=== PATIENT | female | born 1950 | race Caucasian/White ===

== ENCOUNTER 2018-08-10 08:37 | Observation (INO) | payer OTHER ==
--- NOTE | 2018-08-10 08:59 | PDOC ---
History of Present Illness - General Chief Complaint: Chest Pain Stated Complaint: CHEST PAIN - History of Present Illness Initial Comments: The pt is a 68F w/ a history of HTN and RA who presents for evaluation of several months of worsening exertional chest pain and shortness of breath. The pt states that her chest pain is left-sided, pressure, that does not radiate, is worse with walking (and especially stairs), and better with rest. She was seen by her PCP who recommended she see a Plate Painter but she has not made it to one yet. She also reports dyspnea on exertion with occasional lightheadedness with stairs. Currently she reports mild chest pain but no shortness of breath. She denies recent illness, fevers/chills, ISLAS, vision changes, abdominal pain, N/ V/C/D, dysuria, hematuria, blood in her stool, or changes in sensation 08/10/18 09:38 Past History - Past Medical History Allergies/Adverse Reactions: Allergies Allergy/AdvReac Type Severity Reaction Status Date / Time No Known Allergies Allergy Verified 08/10/18 08:43 Home Medications: Ambulatory Orders Hydrochlorothiazide [Hctz -] 12.5 mg PO DAILY 08/10/18 Methotrexate [Mexate -] 20 mg PO Q7D 08/10/18 - Suicide/Smoking/Psychosocial Hx Smoking History: Never smoked Hx Alcohol Use: No Drug/Substance Use Hx: No Review of Systems - Review of Systems Able to Perform ROS?: Yes Comments:: GENERAL/CONSTITUTIONAL: No fever or chills. No weakness HEAD, EYES, EARS, NOSE AND THROAT: No change in vision. No ear pain or discharge. No sore throat CARDIOVASCULAR: +exertional chest pain and HERRERA RESPIRATORY: Denies cough, hemoptysis GASTROINTESTINAL: No nausea, vomiting, diarrhea or constipation GENITOURINARY: No dysuria, frequency, or change in urination MUSCULOSKELETAL: No joint or muscle swelling or pain. No neck or back pain SKIN: No rash NEUROLOGIC: No headache, vertigo, or change in strength/sensation ENDOCRINE: No increased thirst. No abnormal weight change HEMATOLOGIC/LYMPHATIC: No anemia, easy bleeding, or history of blood clots ALLERGIC/IMMUNOLOGIC: No hives or skin allergy 08/10/18 08:58 Is the patient limited Maori proficient: No *Physical Exam - Vital Signs Last Vital Signs Temp Pulse Resp BP Pulse Ox 98.2 F 61 17 143/62 97 08/10/18 08:43 08/10/18 08:43 08/10/18 08:43 08/10/18 08:43 08/10/18 08:43 - Physical Exam Comments: GENERAL: Awake, alert, and oriented to person/place/time, in no acute distress HEAD: No signs of trauma, normocephalic, atraumatic EYES: PERRLA, EOMI, sclera anicteric, conjunctiva clear ENT: Hearing grossly normal, nares patent, oropharynx clear without exudates. Moist mucosa LUNGS: No distress, speaks full sentences, clear to auscultation bilaterally HEART: Regular rate and rhythm, normal S1 and S2, no murmurs appreciated, peripheral pulses normal and equal bilaterally ABDOMEN: Soft, nontender, normoactive bowel sounds. No guarding, no rebound EXTREMITIES: Normal inspection, Normal range of motion, no edema. No clubbing or cyanosis NEUROLOGICAL: Cranial nerves II through XII grossly intact. Normal speech, normal gait, no focal sensorimotor deficits SKIN: Warm, Dry 08/10/18 08:58 ED Treatment Course - LABORATORY CBC & Chemistry Diagram: 08/10/18 09:30 08/10/18 09:30 Medical Decision Making - Medical Decision Making The pt is a 68F w/ a history of HTN and RA who presents for several months of exertional chest pain and HERRERA Ddx includes ACS, PNA, anemia, consider asthma/COPD but not likely, not likely orthostatic ED Course ASA 324mg PO once given CMP, CBC, Trop I ECG CXR 08/10/18 09:44 No leukocytosis No anemia 08/10/18 10:22 ECG sinus w/ HR 78, normal axis, no evidence of acute ischemia 08/10/18 10:31 Initial Trop I neg Lytes wnl LFTs mildly elevated but no history of liver disease, no abdominal pain, no history of EtOH use No CUONG 08/10/18 10:42 Plan for Tele obs for ACS Cardiology consulted, plan for serial trops and stress test 08/10/18 17:43 *DC/Admit/Observation/Transfer Diagnosis at time of Disposition: Dyspnea on exertion Chest pain Qualifiers: Chest pain type: unspecified Qualified Code(s): R07.9 - Chest pain, unspecified Hypertension Qualifiers: Hypertension type: unspecified Qualified Code(s): I10 - Essential (primary) hypertension - Discharge Dispostion Condition at time of disposition: Fair Decision to Admit order: Yes - Referrals - Patient Instructions - Post Discharge Activity
[2018-08-10] MEDS ORDERED: ASPIRIN 81 MG CHEWABLE TABLETS PO ONE (09:27)
[2018-08-10] MEDS ORDERED: ASPIRIN 81 MG CHEWABLE TABLETS ONE (09:28)
--- NOTE | 2018-08-10 09:31 | PDOC ---
Attending Attestation - Resident Resident Name: Brandyn Pryor - ED Attending Attestation I have performed the following: I have examined & evaluated the patient, The case was reviewed & discussed with the resident, I agree w/resident's findings & plan, Exceptions are as noted - HPI HPI: 08/10/18 10:33 Ms Gomez is a 68F w/ a history of HTN and RA who presents for evaluation of two months of worsening exertional chest pain and shortness of breath. The patient reports that she has noted symptoms in May and June She typically stops walking when she notes chest pain. She has noted worsening of her chest pain and shortness of breath at shorter distances In fact, pt recently went to [facility] and while in the subway she syncopized EMS called, she waited 30 minutes and no one came so she called a friend to pick her up She has been seen by her PMD who referred her for CXR (07/11 - negative) PMD recommended cardiology evaluation with Dr Delgado which she has not done yet The pt states that her chest pain is left-sided, pressure, that does not radiate , is worse with walking (and especially stairs), and better with rest. She notes symptoms after walking approximately 20 feet Symptoms are worse with stairs She also notes that at night when she has to go to the bathroom, when she stands , she notes palpitations Currently she reports no chest pain but no shortness of breath. No cough, no palpitations 08/10/18 10:47 - Physicial Exam PE: 08/10/18 09:30 GENERAL: The patient is in no acute distress. ENT: Ears normal, nares patent, oropharynx clear without exudates. Moist mucous membranes. NECK: Normal range of motion, supple LUNGS: Breath sounds equal, clear to auscultation bilaterally. No wheezes, and no crackles. HEART:Regular rate and rhythm, normal S1 and S2 without murmur, rub or gallop. ABDOMEN: Soft, nontender, normoactive bowel sounds. EXTREMITIES: Normal range of motion, no edema. NEUROLOGICAL: Cranial nerves II through XII grossly intact. Normal speech. No focal neurological deficits. SKIN: Warm, Dry, normal turgor, no rashes or lesions noted. 08/10/18 10:34 - Medical Decision Making 08/10/18 10:32 68 yo F h/o HTN presenting to the ER with a complaint of exertional chest pain and dyspnea which has progressively worsened Pt has not been assessed by cardiology EKG - Twelve-lead EKG was performed and reviewed by me. There is normal sinus rhythm with a normal rate of 78 bpm. The axis is normal. The intervals are normal. There are no ST or T wave abnormalities. Impression: Normal twelve-lead EKG 08/10/18 10:34 08/10/18 10:34 HEART score 5 Will plan to admit 08/10/18 10:53 Laboratory Tests 08/10/18 08/10/18 09:30 09:30 WBC 5.7 Hgb 13.0 Hct 38.6 Plt Count 179 Sodium 144 Potassium 4.6 Chloride 112 H Carbon Dioxide 26 BUN 19.2 H Creatinine 0.7 Random Glucose 104 AST 61 H ALT 75 H Troponin I < 0.02 CXR- Cardiomegaly, increased markings at the base Will admit Will contact Dr Delgado for cardiology consultation Pt given ASA 08/10/18 10:54 *DC/Admit/Observation/Transfer Diagnosis at time of Disposition: Dyspnea on exertion Chest pain Qualifiers: Chest pain type: unspecified Qualified Code(s): R07.9 - Chest pain, unspecified Hypertension Qualifiers: Hypertension type: unspecified Qualified Code(s): I10 - Essential (primary) hypertension - Discharge Dispostion Condition at time of disposition: Fair Decision to Admit order: Yes - Referrals Referrals: Maribell Morgan MD [Primary Care Provider] - - Patient Instructions - Post Discharge Activity Heart Score/ECG Review - History History: Highly suspicious - Electrocardiogram EKG: Normal - Age Age: >/= 65 - Risk Factors Risk Factors Heart Score: Yes Hx Hypertension Based on the list above the patient has:: 1-2 risk factors - Troponin Troponin: </= normal limit - Score Heart Score - Total: 5
[2018-08-10 10:01] LABS: BASO % 0.6 % (0-2.0); EOS % 0.7 % (0-4.5); HEMATOCRIT 38.6 % (32.4-45.2); LYMPH % 31.2 % (8-40); MCH 30.6 pg (25.7-33.7); MCHC 33.6 g/dl (32.0-36.0); MEAN CELL VOLUME 90.9 fl (80-96); MEAN PLT VOLUME 9.8 fl (7.5-11.1); NEUT % 60.5 % (42.8-82.8); RBC 4.24 M/mm3 (3.60-5.2); RDW 14.5 % (11.6-15.6); WHITE BLOOD COUNT 5.7 K/mm3 (4.0-10.0)
[2018-08-10 10:21] LABS: PLATELET COUNT 179 K/MM3 (134-434)
--- NOTE | 2018-08-10 10:29 | EKG ---
Test Reason : Blood Pressure : / mmHG Vent. Rate : 078 BPM Atrial Rate : 078 BPM P-R Int : 198 ms QRS Dur : 078 ms QT Int : 410 ms P-R-T Axes : 057 -05 026 degrees QTc Int : 467 ms NORMAL SINUS RHYTHM WITH SINUS ARRHYTHMIA NORMAL ECG NO PREVIOUS ECGS AVAILABLE Confirmed by MD MILTON, VIANEY ([id number]) on 08/10/2018 10:29:34 AM Referred By: Confirmed By:VIANEY ROSE MD
[2018-08-10 10:39] LABS: ALBUMIN 3.4 g/dl (3.4-5.0); ALK PHOS 75 U/L (45-117); ANION GAP 6 MMOL/L (8-16); BLOOD UREA NITROGEN 19.2 mg/dL (7-18); CALCIUM 8.3 mg/dL (8.5-10.1); CHLORIDE 112 mmol/L (98-107); CO2 26 mmol/L (21-32); CREATININE 0.7 mg/dL (0.55-1.3); GLUCOSE,RANDOM 104 mg/dL (74-106); POTASSIUM 4.6 mmol/L (3.5-5.1); SGOT/AST 61 U/L (15-37); SGPT/ALT 75 U/L (13-61); SODIUM 144 mmol/L (136-145)
--- NOTE | 2018-08-10 11:14 | HP ---
CHIEF COMPLAINT: PCP: HISTORY OF PRESENT ILLNESS: This is a 68 yo F with PMH of HTN and RA, who presents due to worsening exertional chest pain and shortness of breath x 2 mo. patient experiences chest pressure, cp, sob and palpitations with exertional, gradually worsening to the point where she cant climb a flight of stairs without the symptoms. symptoms never occur at rest, however 2 w ago she syncopized on the train while sitting at rest, preceded by darkening visions and dizziness, lasting a few seconds. brother had NE at 67 yo, father of NE and mother had CVA. patient denies prior cardiac workup but was seen at Dr Delgado office 2x before w/o any tests done. denies orthopnea, cough, LE edema. ER course was notable for: (1)ekg (2)asa (3)cxr Recent Travel:denies PAST MEDICAL HISTORY: as above PAST SURGICAL HISTORY:as above Social History: Smoking: denies Alcohol: denies Drugs: denies Family History: strong cardiac history as above Allergies No Known Allergies Allergy (Verified 08/10/18 08:43) HOME MEDICATIONS: REVIEW OF SYSTEMS CONSTITUTIONAL: Absent: fever, chills HEENT: Absent: rhinorrhea, nasal congestion, throat pain CARDIOVASCULAR: Absent: peripheral edema RESPIRATORY: Absent: cough, orthopnea, hemoptysis GASTROINTESTINAL: Absent: abdominal pain, abdominal distension, nausea, vomiting, diarrhea, constipation, melena, hematochezia GENITOURINARY: Absent: dysuria MUSCULOSKELETAL: Absent: myalgia, arthralgia SKIN: Absent: rash, itching, pallor HEMATOLOGIC/IMMUNOLOGIC: Absent: easy bleeding, easy bruising ENDOCRINE: Absent: unexplained weight gain, unexplained weight loss NEUROLOGIC: Absent: headache, focal weakness or paresthesias PSYCHIATRIC: Absent: anxiety, depression PHYSICAL EXAMINATION Vital Signs - 24 hr 08/10/18 08:43 Temperature 98.2 F Pulse Rate 61 Respiratory 17 Rate Blood Pressure 143/62 O2 Sat by Pulse 97 Oximetry (%) GENERAL: Awake, alert, and fully oriented, in no acute distress. HEAD: Normal with no signs of trauma. EYES: Pupils equal, round and reactive to light, extraocular movements intact, sclera anicteric, conjunctiva clear. No lid lag. EARS, NOSE, THROAT: Moist mucous membranes. NECK: supple no JVD LUNGS: Breath sounds equal, clear to auscultation bilaterally HEART: Regular rate and rhythm, normal S1 and S2 ABDOMEN: Soft, nontender, not distended, normoactive bowel sounds, no guarding, no rebound, no masses. MUSCULOSKELETAL: No CVA tenderness. LOWER EXTREMITIES: warm, well-perfused. No calf tenderness. No peripheral edema. NEUROLOGICAL: Cranial nerves II-XII grossly intact. Normal speech. PSYCHIATRIC: Cooperative. Good eye contact. Appropriate mood and affect. SKIN: Warm, dry Laboratory Results - last 24 hr 08/10/18 08/10/18 09:30 09:30 WBC 5.7 RBC 4.24 Hgb 13.0 Hct 38.6 MCV 90.9 MCH 30.6 MCHC 33.6 RDW 14.5 Plt Count 179 MPV 9.8 Absolute Neuts (auto) 3.4 Neutrophils % 60.5 Lymphocytes % 31.2 Monocytes % 7.0 Eosinophils % 0.7 Basophils % 0.6 Nucleated RBC % 0 Sodium 144 Potassium 4.6 Chloride 112 H Carbon Dioxide 26 Anion Gap 6 L BUN 19.2 H Creatinine 0.7 Est GFR (CKD-EPI)AfAm 102.46 Est GFR (CKD-EPI)NonAf 88.40 Random Glucose 104 Calcium 8.3 L Total Bilirubin 1.0 AST 61 H ALT 75 H Alkaline Phosphatase 75 Troponin I < 0.02 Total Protein 6.0 L Albumin 3.4 ASSESSMENT/PLAN: This is a 68 yo F with PMH of HTN and RA, who presents due to worsening exertional chest pain and shortness of breath x 2 mo. Chest pain consistent with stable angina mild transaminitis recent syncope HTN RA -multiple risk factors for CAD as well as very convincing symptoms -ekg unremarkabe, trop negative, bnp 1000 -cxr clear -tte mild relaxation impairment, normal ef, no significant valvular abnormality -f/u carotid dopplers, tfts, lipid panel, a1c -cardio consult appreciated. f/u nuclear stress test -f/u liver us, suspect fatty liver - tele monitoring Problem List - Problem (1) History of syncope Code(s): Z87.898 - PERSONAL HISTORY OF OTHER SPECIFIED CONDITIONS (2) Chest pain Code(s): R07.9 - CHEST PAIN, UNSPECIFIED Qualifiers: Chest pain type: unspecified Qualified Code(s): R07.9 - Chest pain, unspecified (3) Dyspnea on exertion Code(s): R06.09 - OTHER FORMS OF DYSPNEA (4) Hypertension Code(s): I10 - ESSENTIAL (PRIMARY) HYPERTENSION Qualifiers: Hypertension type: unspecified Qualified Code(s): I10 - Essential (primary ) hypertension (5) Rheumatoid arthritis Code(s): M06.9 - RHEUMATOID ARTHRITIS, UNSPECIFIED Visit type - Emergency Visit Emergency Visit: Yes ED Registration Date: 08/10/18 Care time: The patient presented to the Emergency Department on the above date and was hospitalized for further evaluation of their emergent condition. - New Patient This patient is new to me today: Yes Date on this admission: 08/10/18 - Critical Care Critical Care patient: No
[2018-08-10 12:04] LABS: N-TERMINAL BNP 1010.1 pg/ml (5-125)
--- NOTE | 2018-08-10 12:47 | CON.CARD ---
Consult Consult Specialty:: cardiology Reason for Consultation:: chest pain; syncope - History of Present Illness Chief Complaint: Pt A&o3 ; asymptomatic. History of Present Illness: Ms Gomez is a 68F w/ a history of HTN and RA with scoliosis, who presents for evaluation of two months of worsening exertional chest pain and shortness of breath. The patient reports that she has noted symptoms in May and June She typically stops walking when she notes chest pain. She has noted worsening of her chest pain and shortness of breath at shorter distances In fact, pt recently went to [facility] and while in the subway she syncopized EMS called, she waited 30 minutes and no one came so she called a friend to pick her up She has been seen by her PMD who referred her for CXR (07/11 - negative) PMD recommended cardiology evaluation with Dr Delgado which she has not done yet The pt states that her chest pain is left-sided, pressure, that does not radiate , is worse with walking (and especially stairs), and better with rest. She notes symptoms after walking approximately 20 feet Symptoms are worse with stairs She also notes that at night when she has to go to the bathroom, when she stands , she notes palpitations Currently she reports no chest pain but no shortness of breath. No cough, no palpitations - History Source History Provided By: Patient, Medical Record Limitations to Obtaining History: Poor Historian - Past Medical History COOK VEGETABLE: Yes: Syncope Cardio/Vascular: Yes: HTN Pulmonary: No: Asthma Renal/: No: Renal Inusuff Reproductive: Yes: Postmenopausal ...: No Heme/Onc: No: Anemia Psych: No: Addictions - Alcohol/Substance Use Hx Alcohol Use: No - Smoking History Smoking history: Never smoked Home Medications - Allergies Allergies/Adverse Reactions: Allergies Allergy/AdvReac Type Severity Reaction Status Date / Time No Known Allergies Allergy Verified 08/10/18 08:43 - Home Medications Home Medications: Ambulatory Orders Hydrochlorothiazide [Hctz -] 12.5 mg PO DAILY 08/10/18 Methotrexate [Mexate -] 20 mg PO Q7D 08/10/18 Family Disease History - Family Disease History Family Disease History: Heart Disease: Mother ([place] age 82), Brother ([place] age 69), Other: Father (CVA age 69) Review of Systems - Review of Systems Constitutional: reports: No Symptoms Eyes: reports: No Symptoms HENT: reports: No Symptoms Neck: reports: No Symptoms Cardiovascular: reports: Chest Pain Respiratory: reports: No Symptoms Gastrointestinal: reports: No Symptoms Genitourinary: reports: No Symptoms Breasts: reports: No Symptoms Reported Musculoskeletal: reports: No Symptoms Integumentary: reports: No Symptoms Neurological: reports: Syncope Endocrine: reports: No Symptoms Hematology/Lymphatic: reports: No Symptoms Psychiatric: reports: No Symptoms - Risk Factors Known Risk Factors: Yes: Age, Hypercholesterolemia, Hypertension, Physical Inactivity Vital Signs: Vital Signs Temperature 98.2 F 08/10/18 12:23 Pulse Rate 59 L 08/10/18 12:23 Respiratory Rate 18 08/10/18 12:23 Blood Pressure 141/79 08/10/18 12:23 O2 Sat by Pulse Oximetry (%) 100 08/10/18 12:23 Constitutional: Yes: Calm Eyes: Yes: WNL HENT: Yes: WNL Neck: Yes: WNL Respiratory: Yes: WNL Gastrointestinal: Yes: WNL Renal/: No: Anuria Cardiovascular: Yes: Regular Rate and Rhythm JVD: No Carotid Bruit: No PMI: Non-Displaced Heart Sounds: Yes: S1, S2, S4 Musculoskeletal: Yes: WNL Extremities: Yes: WNL Edema: No Peripheral Pulses WNL: Yes Integumentary: Yes: WNL Neurological: Yes: WNL ...Motor Strength: WNL Psychiatric: Yes: WNL - Other Data Labs, Other Data: CBC, BMP 08/10/18 09:30 08/10/18 09:30 Troponin, BNP 08/10/18 09:30 Troponin I < 0.02 B-Natriuretic Peptide 1010.1 H Troponin, BNP 08/10/18 09:30 Troponin I < 0.02 B-Natriuretic Peptide 1010.1 H Abnormal Lab Results 08/12/18 05:20 Chloride 109 H Anion Gap 5 L BUN 20.0 H Calcium 8.4 L Magnesium 2.7 H Total Protein 6.0 L Albumin 3.3 L Echo: Report Reviewed Ejection Fraction %: LVEF > or = 40 % Imaging - Results Chest X-ray: Image Reviewed EKG: Image Reviewed Problem List - Problems (1) HLD (hyperlipidemia) Code(s): E78.5 - HYPERLIPIDEMIA, UNSPECIFIED (2) History of syncope Assessment/Plan: orthostatic VS chescks. Maintain hydration. Telemetry monitoring. ECHO: normal LVEF. For stress MIBI (chest pain). Code(s): Z87.898 - PERSONAL HISTORY OF OTHER SPECIFIED CONDITIONS (3) Hypertension Code(s): I10 - ESSENTIAL (PRIMARY) HYPERTENSION Qualifiers: Hypertension type: unspecified Qualified Code(s): I10 - Essential (primary ) hypertension (4) Rheumatoid arthritis Code(s): M06.9 - RHEUMATOID ARTHRITIS, UNSPECIFIED (5) Exertional chest pain Assessment/Plan: TNI < 0.02 x 2 EKG: no acute STT changes. For stress MIBI. Code(s): R07.9 - CHEST PAIN, UNSPECIFIED
--- NOTE | 2018-08-10 13:10 | PN ---
Teaching Attending Note Name of Resident: Kaylan Troncoso ATTENDING PHYSICIAN STATEMENT I saw and evaluated the patient. I reviewed the resident's note and discussed the case with the resident. I agree with the resident's findings and plan as documented. CC: I'm having chest pain HPI: Ms Gomez is a 68 year old female who comes in with about 2 months of chest pain. She says that she feels it on exertion. She says that at first it was minimal and only after significant exertion, but now it is becoming more severe and with less exertion. She cannot go up stairs in her house without feeling the chest pain. It relieves with rest. It is retrosternal in location, it does not radiate. It is more of a pressure like pain. At its worst it is anm 8/10. It's associated with shortness of breath. She says she came in today because she feels it so strongly and frequently now and this is a change. She had an episode of dizziness with syncope ~2-3 weeks ago. She did not go to the hospital for that episode and it has not recurred. She currently is chest pain free since she is resting. She denies fevers, chills, lightheadedness, dizziness , coughing, abdominal pain, nausea, vomiting, diarrhea, constipation, difficulty or pain on urination, or swelling. 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 FHx: mother and brother with CAD ROS: full review of systems obtained, as per HPI and otherwise negative OBJECTIVE: Last Vital Signs Temp Pulse Resp BP Pulse Ox 36.6 C 62 18 151/87 100 08/10/18 15:15 08/10/18 15:15 08/10/18 15:15 08/10/18 15:15 08/10/18 13:47 Gen: nad HEENT: perrla, eomi, mmm Pulm: ctab w/o w/r/r CV: rrr w/o m/r/g, chest pain reproducible with palpation Abd: +bs, s/nt/nd Ext: no c/c/e CBC, BMP 08/10/18 09:30 08/10/18 09:30 ASSESSMENT AND PLAN: Problem List - Problems (1) Chest pain Assessment/Plan: -admit to telemetry observation -cardiology consulted and will see -cardiac enzymes x3, first set negative -metoprolol and lisinopril for both chest pain and HTN -check lipid profile in am -check ECHO -check Hgb A1c and TSH -plan for stress test tomorrow Code(s): R07.9 - CHEST PAIN, UNSPECIFIED Qualifiers: Chest pain type: unspecified Qualified Code(s): R07.9 - Chest pain, unspecified (2) Rheumatoid arthritis Assessment/Plan: -restart methotrexate on discharge Code(s): M06.9 - RHEUMATOID ARTHRITIS, UNSPECIFIED (3) Hypertension Assessment/Plan: -will place on metoprolol and lisinopril -monitor Code(s): I10 - ESSENTIAL (PRIMARY) HYPERTENSION Qualifiers: Hypertension type: unspecified Qualified Code(s): I10 - Essential (primary ) hypertension
[2018-08-10 13:43] VITALS: BMI 32.4
--- NOTE | 2018-08-10 14:33 | ECHO ---
Version: 1 Name: YORDAN MEDINA Exam: Adult Echocardiogram Study Date: 08/10/2018, 1:53 PM Age: 68 Years MMode/2D Measurements & Calculations IVSd: 1.08 cm LVIDs: 2.8 cm LVIDd: 3.7 cm LVPWd: 1.43 cm ACS: 2.00 cm LVOT diam: 1.97 cm Doppler Measurements & Calculations MV E max pelon: 71.1 cm/sec Med E/e': 9.9 MV A max pelon: 97.5 cm/sec Med Peak E' Pelon: 7.1 cm/sec MV E/A: 0.73 Lat E/e': 9.1 Lat Peak E' Pelon: 7.8 cm/sec Ao max P.1 mmHg JOCE(I,D): 1.86 cm Ao mean P.5 mmHg LV V1 mean: 60.6 cm/sec Ao V2 max: 142.5 cm/sec LV V1 mean P.64 mmHg Left Ventricle The left ventricular size, thickness and function are normal. Ejection Fraction = 65. The transmitra l spectral Doppler flow pattern is suggestive of impaired LV relaxation. Right Ventricle The right ventricle is normal in size and function. Atria Normal left and right atrial size and function. Mitral Valve There is mild mitral annular calcification. There is trace to mild mitral regurgitation. Tricuspid Valve The tricuspid valve is normal in structure and function. There is trace tricuspid regurgitation. Aortic Valve The aortic valve is normal in structure and function. Pulmonic Valve The pulmonic valve is not well visualized. Great Vessels The aortic root is normal size. Normal aortic arch, descending and ascending aorta. Pericardium/Pleura There is no pericardial effusion. Summary Statements The left ventricular size, thickness and function are normal Ejection Fraction = 65. The transmitral spectral Doppler flow pattern is suggestive of impaired LV relaxation. The right ventricle is normal in size and function. Normal left and right atrial size and function. There is mild mitral annular calcification. There is trace to mild mitral regurgitation. The tricuspid valve is normal in structure and function. There is trace tricuspid regurgitation. The aortic valve is normal in structure and function. The pulmonic valve is not well visualized. The aortic root is normal size. Normal aortic arch, descending and ascending aorta There is no pericardial effusion. Julio César Justice 08/10/2018, 1:32 PM Ordering Physician: Kaylan Troncoso Performed By: Ayesha Yoder
[2018-08-10] MEDS ORDERED: NITROGLYCERIN SUBLINGUAL 1/150 0.4 MG TAB SL PRN (16:04)
[2018-08-10] MEDS: METOPROLOL TARTRATE 25 MG TABLET (FP) PO SCH (21:11)
[2018-08-10] MEDS ORDERED: METOPROLOL TARTRATE 25 MG TABLET (FP) PO SCH (22:00)
[2018-08-11 07:13] LABS: HEMATOCRIT 41.7 % (32.4-45.2); MCH 30.4 pg (25.7-33.7); MCHC 33.7 g/dl (32.0-36.0); MEAN CELL VOLUME 90.3 fl (80-96); MEAN PLT VOLUME 9.6 fl (7.5-11.1); PLATELET COUNT 170 K/MM3 (134-434); RBC 4.62 M/mm3 (3.60-5.2); RDW 14.4 % (11.6-15.6)
[2018-08-11 07:46] LABS: ALBUMIN 3.6 g/dl (3.4-5.0); BILIRUBIN,TOTAL 1.2 mg/dL (0.2-1); BLOOD UREA NITROGEN 16.4 mg/dL (7-18); CALCIUM 8.1 mg/dL (8.5-10.1); CREATININE 0.6 mg/dL (0.55-1.3); MAGNESIUM 2.5 mg/dL (1.8-2.4); PHOSPHOROUS 3.8 mg/dL (2.5-4.9); POTASSIUM 4.1 mmol/L (3.5-5.1); TOT PROT 6.8 g/dl (6.4-8.2)
[2018-08-11] MEDS ORDERED: REGADENOSON 0.4 MG/5 ML PRE-FILLED SYRINGE IVPUSH ONE ×2 (12:08→12:30)
--- NOTE | 2018-08-11 12:10 | PN ---
Progress Note, Physician History of Present Illness: Ms Gomez is a 68F w/ a history of HTN and RA who presents for evaluation of two months of worsening exertional chest pain and shortness of breath. The patient reports that she has noted symptoms in May and June She typically stops walking when she notes chest pain. She has noted worsening of her chest pain and shortness of breath at shorter distances In fact, pt recently went to [facility] and [place] she syncopized EMS called, she waited 30 minutes and no one came so she called a friend to pick her up She has been seen by her PMD who referred her for CXR (07/11 - negative) PMD recommended cardiology evaluation with Dr Delgado which she has not done yet The pt states that her chest pain is left-sided, pressure, that does not radiate , is worse with walking (and especially stairs), and better with rest. She notes symptoms after walking approximately 20 feet Symptoms are worse with stairs She also notes that at night when she has to go to the bathroom, when she stands , she notes palpitations Currently she reports no chest pain but no shortness of breath. No cough, no palpitations - Current Medication List Current Medications: Active Medications Aspirin (Asa -) 81 mg PO DAILY [facility] Lisinopril (Prinivil) 5 mg PO DAILY [facility] Metoprolol Tartrate (Lopressor -) 25 mg PO BID [facility] Last Admin: 08/10/18 21:11 Dose: 25 mg Nitroglycerin (Nitrostat -) 0.4 mg SL Q5M PRN PRN Reason: FOR CHEST PAIN - Objective Vital Signs: Vital Signs Temperature 98.8 F 08/11/18 05:00 Pulse Rate 65 08/11/18 05:00 Respiratory Rate 18 08/11/18 05:00 Blood Pressure 152/72 08/11/18 05:00 O2 Sat by Pulse Oximetry (%) 98 08/11/18 09:00 Eyes: Yes: WNL, Conjunctiva Clear, EOM Intact HENT: Yes: WNL, Atraumatic, Normocephalic Neck: Yes: WNL, Supple, Trachea Midline Cardiovascular: Yes: WNL, Regular Rate and Rhythm Respiratory: Yes: WNL, Regular, CTA Bilaterally Gastrointestinal: Yes: WNL, Normal Bowel Sounds Genitourinary: Yes: WNL Musculoskeletal: Yes: WNL Extremities: Yes: WNL Edema: No Integumentary: Yes: WNL Neurological: Yes: WNL, Alert, Oriented ...Motor Strength: WNL Psychiatric: Yes: WNL Labs: CBC, BMP 08/11/18 05:30 08/11/18 05:30 Assessment/Plan syncope angina htn hyperlipidemia ra echo nl ef carotid -non obstructive atherosclerosis mibi st - Plan; lipitor [address] today showed moderate lateral wall ischemia. Will transfer for c. cath to [facility]
[2018-08-11] MEDS: LISINOPRIL 5 MG TABLET (FP) PO SCH (13:51)
[2018-08-11] MEDS: ASPIRIN 81 MG CHEWABLE TABLETS PO SCH (13:51)
[2018-08-11] MEDS: METOPROLOL TARTRATE 25 MG TABLET (FP) PO SCH ×2 (13:51→21:47)
--- NOTE | 2018-08-11 15:49 | PN ---
Teaching Attending Note Name of Resident: Kaylan Troncoso ATTENDING PHYSICIAN STATEMENT I saw and evaluated the patient. I reviewed the resident's note and discussed the case with the resident. I agree with the resident's findings and plan as documented. SUBJECTIVE: Ms Gomez is without complaint and feels well. Denies cp, sob, n/ v. Aware of need to transfer to [place] for cardiac cath. OBJECTIVE: Last Vital Signs Temp Pulse Resp BP Pulse Ox 36.6 C 61 18 150/77 99 08/11/18 14:10 08/11/18 14:10 08/11/18 14:10 08/11/18 14:10 08/11/18 13:00 Gen: nad Pulm: ctab w/o w/r/r CV: rrr w/o m/r/g Abd: +bs, s/nt/nd Ext: no c/c/e CBC, BMP 08/11/18 05:30 08/11/18 05:30 ASSESSMENT AND PLAN: Problem List - Problems (1) CAD (coronary artery disease) Assessment/Plan: -stress test positive, patient with CAD -transfer to [place] for cardiac catheterization Code(s): I25.10 - ATHSCL HEART DISEASE OF [place] CORONARY ARTERY W/O ANG PCTRS (2) Rheumatoid arthritis Assessment/Plan: -holding methotrexate currently Code(s): M06.9 - RHEUMATOID ARTHRITIS, UNSPECIFIED (3) Hypertension Assessment/Plan: -started on metoprolol and lisinopril -not controlled, but just received first dose after stress test -can increase lisinopril since HR in the 60s Code(s): I10 - ESSENTIAL (PRIMARY) HYPERTENSION Qualifiers: Hypertension type: unspecified Qualified Code(s): I10 - Essential (primary ) hypertension (4) HLD (hyperlipidemia) Assessment/Plan: -not at target for CAD -on lipitor 40mg qhs Code(s): E78.5 - HYPERLIPIDEMIA, UNSPECIFIED
--- NOTE | 2018-08-11 17:43 | PN ---
Physical Exam: SUBJECTIVE: Patient seen and examined sitting in bed nad afebrile hemodynamicaly stable, no acute events. s/p stress test. no complaints, no cp, sob, palpitations at rest or when walking down the modi OBJECTIVE: Vital Signs Period Temp Pulse Resp BP Sys/Gonzalez Pulse Ox Last 24 Hr 98 F-98.8 F 61-73 18-20 142-152/72-91 98-99 GENERAL: Awake, alert, and fully oriented, in no acute distress. HEAD: Normal with no signs of trauma. EYES: Pupils equal, round and reactive to light, extraocular movements intact, sclera anicteric, conjunctiva clear. No lid lag. EARS, NOSE, THROAT: Moist mucous membranes. NECK: supple no JVD LUNGS: Breath sounds equal, clear to auscultation bilaterally HEART: Regular rate and rhythm, normal S1 and S2 ABDOMEN: Soft, nontender, not distended, normoactive bowel sounds, no guarding, no rebound, no masses. MUSCULOSKELETAL: No CVA tenderness. LOWER EXTREMITIES: warm, well-perfused. No calf tenderness. No peripheral edema. NEUROLOGICAL: Cranial nerves II-XII grossly intact. Normal speech. PSYCHIATRIC: Cooperative. Good eye contact. Appropriate mood and affect. SKIN: Warm, dry Laboratory Results - last 24 hr 08/10/18 08/11/18 08/11/18 21:25 00:55 05:30 WBC 4.0 RBC 4.62 Hgb 14.0 Hct 41.7 MCV 90.3 MCH 30.4 MCHC 33.7 RDW 14.4 Plt Count 170 MPV 9.6 Sodium Potassium Chloride Carbon Dioxide Anion Gap BUN Creatinine Est GFR (CKD-EPI)AfAm Est GFR (CKD-EPI)NonAf Random Glucose Hemoglobin A1c % Calcium Phosphorus Magnesium Total Bilirubin AST ALT Alkaline Phosphatase Creatine Kinase 168 164 Creatine Kinase Index 0.8 0.9 CK-MB (CK-2) 1.4 1.6 Troponin I < 0.02 < 0.02 Total Protein Albumin Triglycerides Cholesterol Total LDL Cholesterol HDL Cholesterol TSH Free T4 08/11/18 08/11/18 08/11/18 05:30 05:30 06:30 WBC RBC Hgb Hct MCV MCH MCHC RDW Plt Count MPV Sodium 143 Potassium 4.1 Chloride 109 H Carbon Dioxide 29 Anion Gap 6 L BUN 16.4 Creatinine 0.6 Est GFR (CKD-EPI)AfAm 107.79 Est GFR (CKD-EPI)NonAf 93.00 Random Glucose 83 Hemoglobin A1c % 6.7 H Calcium 8.1 L Phosphorus 3.8 Magnesium 2.5 H Total Bilirubin 1.2 H AST 41 H ALT 70 H Alkaline Phosphatase 76 Creatine Kinase Creatine Kinase Index CK-MB (CK-2) Troponin I Total Protein 6.8 Albumin 3.6 Triglycerides 151 H Cholesterol 200 Total LDL Cholesterol 122 H HDL Cholesterol 60 TSH 4.92 H Free T4 0.98 Active Medications Generic Name Dose Route Start Last Admin Trade Name Freq PRN Reason Stop Dose Admin Aspirin 81 mg 08/11/18 10:00 08/11/18 13:51 Asa - PO 81 mg DAILY [facility] Administration Atorvastatin Calcium 40 mg 08/11/18 22:00 Lipitor - PO HS [facility] Lisinopril 5 mg 08/11/18 10:00 08/11/18 13:51 Prinivil PO 5 mg DAILY [facility] Administration Metoprolol Tartrate 25 mg 08/10/18 22:00 08/11/18 13:51 Lopressor - PO 25 mg BID [facility] Administration Nitroglycerin 0.4 mg 08/10/18 16:04 Nitrostat - SL Q5M PRN FOR CHEST PAIN ASSESSMENT/PLAN: This is a 68 yo F with PMH of HTN and RA, who presents due to worsening exertional chest pain and shortness of breath x 2 mo. Chest pain consistent with stable angina mild transaminitis recent syncope HTN RA -multiple risk factors for CAD as well as very convincing symptoms -tte mild relaxation impairment, normal ef, no significant valvular abnormality -nuclear stress test: moderate lateral wall reversible defect ef 78% -patient being transferred to [place] for cath -carotid dopplers w/o hemodynamically significant lesions -tfts wnl, lipid panel suboptima, lipitor 40 started, a1c 6.7 -liver us significant for 2 gb polyps, largest 8 mm: recommend outpatient f/u -tele monitoring -cardio consult appreciated. Problem List - Problems (1) History of syncope Code(s): Z87.898 - PERSONAL HISTORY OF OTHER SPECIFIED CONDITIONS (2) Chest pain Code(s): R07.9 - CHEST PAIN, UNSPECIFIED Qualifiers: Chest pain type: unspecified Qualified Code(s): R07.9 - Chest pain, unspecified (3) Dyspnea on exertion Code(s): R06.09 - OTHER FORMS OF DYSPNEA (4) Hypertension Code(s): I10 - ESSENTIAL (PRIMARY) HYPERTENSION Qualifiers: Hypertension type: unspecified Qualified Code(s): I10 - Essential (primary ) hypertension (5) Rheumatoid arthritis Code(s): M06.9 - RHEUMATOID ARTHRITIS, UNSPECIFIED Visit type - Emergency Visit Emergency Visit: Yes ED Registration Date: 08/10/18 Care time: The patient presented to the Emergency Department on the above date and was hospitalized for further evaluation of their emergent condition. - New Patient This patient is new to me today: No - Critical Care Critical Care patient: No - Discharge Referral Referred to [facility] No
[2018-08-11] MEDS: ATORVASTATIN CA 40 MG TABLET (FP) PO SCH (21:47)
[2018-08-12 07:13] LABS: ALBUMIN 3.3 g/dl (3.4-5.0); CALCIUM 8.4 mg/dL (8.5-10.1); CREATININE 0.7 mg/dL (0.55-1.3); MAGNESIUM 2.7 mg/dL (1.8-2.4); PHOSPHOROUS 4.6 mg/dL (2.5-4.9); POTASSIUM 4.5 mmol/L (3.5-5.1)
--- NOTE | 2018-08-12 09:10 | PN ---
Physical Exam: SUBJECTIVE: Patient seen and examined sitting in bed nad afebrile hemodynamicaly stable, no acute events. reports mild angina when walking down the modi. awaiting xfer for cath OBJECTIVE: Vital Signs Period Temp Pulse Resp BP Sys/Gonzalez Pulse Ox Last 24 Hr 97.9 F-98.5 F 52-62 18-18 112-150/56-77 99 GENERAL: Awake, alert, and fully oriented, in no acute distress. HEAD: Normal with no signs of trauma. EYES: Pupils equal, round and reactive to light, extraocular movements intact, sclera anicteric, conjunctiva clear. No lid lag. EARS, NOSE, THROAT: Moist mucous membranes. NECK: supple no JVD LUNGS: Breath sounds equal, clear to auscultation bilaterally HEART: Regular rate and rhythm, normal S1 and S2 ABDOMEN: Soft, nontender, not distended, normoactive bowel sounds, no guarding, no rebound, no masses. MUSCULOSKELETAL: No CVA tenderness. LOWER EXTREMITIES: warm, well-perfused. No calf tenderness. No peripheral edema. NEUROLOGICAL: Cranial nerves II-XII grossly intact. Normal speech. PSYCHIATRIC: Cooperative. Good eye contact. Appropriate mood and affect. SKIN: Warm, dry Laboratory Results - last 24 hr 08/12/18 05:20 Sodium 143 Potassium 4.5 Chloride 109 H Carbon Dioxide 28 Anion Gap 5 L BUN 20.0 H Creatinine 0.7 Est GFR (CKD-EPI)AfAm 102.46 Est GFR (CKD-EPI)NonAf 88.40 Random Glucose 104 Calcium 8.4 L Phosphorus 4.6 Magnesium 2.7 H Total Bilirubin 1.0 AST 22 ALT 48 Alkaline Phosphatase 61 Total Protein 6.0 L Albumin 3.3 L Active Medications Generic Name Dose Route Start Last Admin Trade Name Freq PRN Reason Stop Dose Admin Aspirin 81 mg 08/11/18 10:00 08/11/18 13:51 Asa - PO 81 mg DAILY [facility] Administration Atorvastatin Calcium 40 mg 08/11/18 22:00 08/11/18 21:47 Lipitor - PO 40 mg HS [facility] Administration Lisinopril 5 mg 08/11/18 10:00 08/11/18 13:51 Prinivil PO 5 mg DAILY [facility] Administration Metoprolol Tartrate 25 mg 08/10/18 22:00 08/11/18 21:47 Lopressor - PO 25 mg BID [facility] Administration Nitroglycerin 0.4 mg 08/10/18 16:04 Nitrostat - SL Q5M PRN FOR CHEST PAIN ASSESSMENT/PLAN: This is a 68 yo F with PMH of HTN and RA, who presents due to worsening exertional chest pain and shortness of breath x 2 mo. Chest pain consistent with stable angina mild transaminitis recent syncope HTN RA -multiple risk factors for CAD as well as very convincing symptoms -tte mild relaxation impairment, normal ef, no significant valvular abnormality -nuclear stress test: moderate lateral wall reversible defect ef 78% -patient being transferred to [place] for cath -carotid dopplers w/o hemodynamically significant lesions -tfts wnl, lipid panel suboptima, lipitor 40 started, a1c 6.7 -liver us significant for 2 gb polyps, largest 8 mm: recommend outpatient f/u -tele monitoring -cardio consult appreciated. Problem List - Problems (1) History of syncope Code(s): Z87.898 - PERSONAL HISTORY OF OTHER SPECIFIED CONDITIONS (2) Chest pain Code(s): R07.9 - CHEST PAIN, UNSPECIFIED Qualifiers: Chest pain type: unspecified Qualified Code(s): R07.9 - Chest pain, unspecified (3) Dyspnea on exertion Code(s): R06.09 - OTHER FORMS OF DYSPNEA (4) Hypertension Code(s): I10 - ESSENTIAL (PRIMARY) HYPERTENSION Qualifiers: Hypertension type: unspecified Qualified Code(s): I10 - Essential (primary ) hypertension (5) Rheumatoid arthritis Code(s): M06.9 - RHEUMATOID ARTHRITIS, UNSPECIFIED (6) Gall bladder polyp Code(s): K82.4 - CHOLESTEROLOSIS OF GALLBLADDER Visit type - Emergency Visit Emergency Visit: Yes ED Registration Date: 08/10/18 Care time: The patient presented to the Emergency Department on the above date and was hospitalized for further evaluation of their emergent condition. - New Patient This patient is new to me today: No - Critical Care Critical Care patient: No - Discharge Referral Referred to [facility] No
[2018-08-12] MEDS: LISINOPRIL 5 MG TABLET (FP) PO SCH (09:31)
[2018-08-12] MEDS: ASPIRIN 81 MG CHEWABLE TABLETS PO SCH (09:32)
[2018-08-12] MEDS: METOPROLOL TARTRATE 25 MG TABLET (FP) PO SCH ×2 (09:32→22:14)
[2018-08-12] MEDS ORDERED: CLOPIDOGREL BISULFATE 300 MG TABLET PO ONE (13:28)
--- NOTE | 2018-08-12 13:29 | PN ---
Progress Note, Physician History of Present Illness: Pt A&Ox3; no chest pain. - Current Medication List Current Medications: Active Medications Aspirin (Asa -) 81 mg PO DAILY [facility] Last Admin: 08/12/18 09:32 Dose: 81 mg Atorvastatin Calcium (Lipitor -) 40 mg PO HS [facility] Last Admin: 08/11/18 21:47 Dose: 40 mg Lisinopril (Prinivil) 5 mg PO DAILY [facility] Last Admin: 08/12/18 09:31 Dose: 5 mg Metoprolol Tartrate (Lopressor -) 25 mg PO BID [facility] Last Admin: 08/12/18 09:32 Dose: 25 mg Nitroglycerin (Nitrostat -) 0.4 mg SL Q5M PRN PRN Reason: FOR CHEST PAIN - Objective Vital Signs: Vital Signs Temperature 99.3 F 08/12/18 09:36 Pulse Rate 51 L 08/12/18 09:36 Respiratory Rate 18 08/12/18 09:36 Blood Pressure 134/82 08/12/18 09:36 O2 Sat by Pulse Oximetry (%) 97 08/12/18 09:00 Labs: CBC, BMP 08/11/18 05:30 08/12/18 05:20 Problem List - Problems (1) HLD (hyperlipidemia) Code(s): E78.5 - HYPERLIPIDEMIA, UNSPECIFIED (2) History of syncope Assessment/Plan: orthostatic VS chescks. Maintain hydration. Telemetry monitoring. ECHO: normal LVEF. For stress MIBI (chest pain). Code(s): Z87.898 - PERSONAL HISTORY OF OTHER SPECIFIED CONDITIONS (3) Hypertension Code(s): I10 - ESSENTIAL (PRIMARY) HYPERTENSION Qualifiers: Hypertension type: unspecified Qualified Code(s): I10 - Essential (primary ) hypertension (4) Rheumatoid arthritis Code(s): M06.9 - RHEUMATOID ARTHRITIS, UNSPECIFIED (5) Exertional chest pain Assessment/Plan: TNI < 0.02 x 2 EKG: no acute STT changes. Stress MIBI: + for ischemia. [facility]. Code(s): R07.9 - CHEST PAIN, UNSPECIFIED
--- NOTE | 2018-08-12 15:34 | PN ---
Teaching Attending Note Name of Resident: Kaylan Troncoso ATTENDING PHYSICIAN STATEMENT I saw and evaluated the patient. I reviewed the resident's note and discussed the case with the resident. I agree with the resident's findings and plan as documented. SUBJECTIVE: Ms Gomez says she is nervous about her stress test results, wants to be transferred for cardiac cath. No cp, sob, n/v. Walking around. OBJECTIVE: Last Vital Signs Temp Pulse Resp BP Pulse Ox 37.4 C 51 L 18 134/82 97 08/12/18 09:36 08/12/18 09:36 08/12/18 09:36 08/12/18 09:36 08/12/18 09:00 Gen: nad Pulm: ctab w/o w/r/r CV: rrr w/o m/r/g Abd: +bs, s/nt/nd Ext: no c/c/e CBC, BMP 08/11/18 05:30 08/12/18 05:20 ASSESSMENT AND PLAN: (1) CAD (coronary artery disease) Assessment/Plan: -stress test positive, patient with CAD -case d/w Dr Muro -transfer to [place] for catheterization Code(s): I25.10 - ATHSCL HEART DISEASE OF [place] CORONARY ARTERY W/O ANG PCTRS (2) Rheumatoid arthritis Assessment/Plan: -holding methotrexate currently Code(s): M06.9 - RHEUMATOID ARTHRITIS, UNSPECIFIED (3) Hypertension Assessment/Plan: -controlled -continue metoprolol and lisinopril Code(s): I10 - ESSENTIAL (PRIMARY) HYPERTENSION Qualifiers: Hypertension type: unspecified Qualified Code(s): I10 - Essential (primary ) hypertension (4) HLD (hyperlipidemia) Assessment/Plan: -not at target for CAD -on lipitor 40mg qhs Code(s): E78.5 - HYPERLIPIDEMIA, UNSPECIFIED Problem List - Problems (1) CAD (coronary artery disease) Code(s): I25.10 - ATHSCL HEART DISEASE OF [place] CORONARY ARTERY W/O ANG PCTRS (2) Rheumatoid arthritis Code(s): M06.9 - RHEUMATOID ARTHRITIS, UNSPECIFIED (3) Hypertension Code(s): I10 - ESSENTIAL (PRIMARY) HYPERTENSION Qualifiers: Hypertension type: unspecified Qualified Code(s): I10 - Essential (primary ) hypertension (4) HLD (hyperlipidemia) Code(s): E78.5 - HYPERLIPIDEMIA, UNSPECIFIED
[2018-08-12] MEDS: ATORVASTATIN CA 40 MG TABLET (FP) PO SCH (22:14)
--- NOTE | 2018-08-13 08:58 | PN ---
Physical Exam: SUBJECTIVE: Patient seen and examined sitting in bed nad afebrile hemodynamicaly stable, no acute events. reports mild angina when walking down the modi. awaiting xfer for cath OBJECTIVE: Vital Signs Period Temp Pulse Resp BP Sys/Gonzalez Pulse Ox Last 24 Hr 97.8 F-99.3 F 45-62 18-18 103-134/63-82 97-97 GENERAL: Awake, alert, and fully oriented, in no acute distress. HEAD: Normal with no signs of trauma. EYES: Pupils equal, round and reactive to light, extraocular movements intact, sclera anicteric, conjunctiva clear. No lid lag. EARS, NOSE, THROAT: Moist mucous membranes. NECK: supple no JVD LUNGS: Breath sounds equal, clear to auscultation bilaterally HEART: Regular rate and rhythm, normal S1 and S2 ABDOMEN: Soft, nontender, not distended, normoactive bowel sounds, no guarding, no rebound, no masses. MUSCULOSKELETAL: No CVA tenderness. LOWER EXTREMITIES: warm, well-perfused. No calf tenderness. No peripheral edema. NEUROLOGICAL: Cranial nerves II-XII grossly intact. Normal speech. PSYCHIATRIC: Cooperative. Good eye contact. Appropriate mood and affect. SKIN: Warm, dry Active Medications Generic Name Dose Route Start Last Admin Trade Name Freq PRN Reason Stop Dose Admin Aspirin 81 mg 08/11/18 10:00 08/12/18 09:32 Asa - PO 81 mg DAILY [facility] Administration Atorvastatin Calcium 40 mg 08/11/18 22:00 08/12/18 22:14 Lipitor - PO 40 mg HS [facility] Administration Lisinopril 5 mg 08/11/18 10:00 08/12/18 09:31 Prinivil PO 5 mg DAILY [facility] Administration Metoprolol Tartrate 25 mg 08/10/18 22:00 08/12/18 22:14 Lopressor - PO 25 mg BID [facility] Administration Nitroglycerin 0.4 mg 08/10/18 16:04 Nitrostat - SL Q5M PRN FOR CHEST PAIN ASSESSMENT/PLAN: This is a 68 yo F with PMH of HTN and RA, who presents due to worsening exertional chest pain and shortness of breath x 2 mo. Chest pain consistent with stable angina mild transaminitis recent syncope HTN RA -multiple risk factors for CAD as well as very convincing symptoms -tte mild relaxation impairment, normal ef, no significant valvular abnormality -nuclear stress test: moderate lateral wall reversible defect ef 78% -patient being transferred to [place] for cath, hopefully today -carotid dopplers w/o hemodynamically significant lesions -tfts wnl, lipid panel suboptima, lipitor 40 started, a1c 6.7 -liver us significant for 2 gb polyps, largest 8 mm: recommend outpatient f/u -tele monitoring -cardio consult appreciated. Problem List - Problems (1) History of syncope Code(s): Z87.898 - PERSONAL HISTORY OF OTHER SPECIFIED CONDITIONS (2) Chest pain Code(s): R07.9 - CHEST PAIN, UNSPECIFIED Qualifiers: Chest pain type: unspecified Qualified Code(s): R07.9 - Chest pain, unspecified (3) Dyspnea on exertion Code(s): R06.09 - OTHER FORMS OF DYSPNEA (4) Hypertension Code(s): I10 - ESSENTIAL (PRIMARY) HYPERTENSION Qualifiers: Hypertension type: unspecified Qualified Code(s): I10 - Essential (primary ) hypertension (5) Rheumatoid arthritis Code(s): M06.9 - RHEUMATOID ARTHRITIS, UNSPECIFIED (6) Gall bladder polyp Code(s): K82.4 - CHOLESTEROLOSIS OF GALLBLADDER Visit type - Emergency Visit Emergency Visit: Yes ED Registration Date: 08/10/18 Care time: The patient presented to the Emergency Department on the above date and was hospitalized for further evaluation of their emergent condition. - New Patient This patient is new to me today: No - Critical Care Critical Care patient: No - Discharge Referral Referred to [facility].: No
[2018-08-13] MEDS: ASPIRIN 81 MG CHEWABLE TABLETS PO SCH (09:43)
[2018-08-13] MEDS: METOPROLOL TARTRATE 25 MG TABLET (FP) PO SCH (09:43)
[2018-08-13] MEDS: LISINOPRIL 5 MG TABLET (FP) PO SCH (09:43)
--- NOTE | 2018-08-13 10:40 | PN ---
Teaching Attending Note Name of Resident: Kaylan Troncoso ATTENDING PHYSICIAN STATEMENT I saw and evaluated the patient. I reviewed the resident's note and discussed the case with the resident. I agree with the resident's findings and plan as documented. SUBJECTIVE: Ms Gomez is without complaint. No cp, sob, n/v. OBJECTIVE: Last Vital Signs Temp Pulse Resp BP Pulse Ox 36.6 C 62 18 103/72 97 08/13/18 08:55 08/13/18 08:55 08/13/18 08:55 08/13/18 08:55 08/13/18 08:55 Gen: nad Pulm: ctab w/o w/r/r CV: rrr w/o m/r/g Abd: +bs, s/nt/nd Ext: no c/c/e CBC, BMP 08/11/18 05:30 08/12/18 05:20 ASSESSMENT AND PLAN: (1) CAD (coronary artery disease) Assessment/Plan: -stress test positive, patient with CAD -case d/w Dr Muro -transfer to [place] for catheterization, awaiting bed Code(s): I25.10 - ATHSCL HEART DISEASE OF [place] CORONARY ARTERY W/O ANG PCTRS (2) Rheumatoid arthritis Assessment/Plan: -holding methotrexate currently Code(s): M06.9 - RHEUMATOID ARTHRITIS, UNSPECIFIED (3) Hypertension Assessment/Plan: -controlled -continue metoprolol and lisinopril Code(s): I10 - ESSENTIAL (PRIMARY) HYPERTENSION Qualifiers: Hypertension type: unspecified Qualified Code(s): I10 - Essential (primary ) hypertension (4) HLD (hyperlipidemia) Assessment/Plan: -not at target for CAD -on lipitor 40mg qhs Code(s): E78.5 - HYPERLIPIDEMIA, UNSPECIFIED Problem List - Problems (1) CAD (coronary artery disease) Code(s): I25.10 - ATHSCL HEART DISEASE OF [place] CORONARY ARTERY W/O ANG PCTRS (2) Rheumatoid arthritis Code(s): M06.9 - RHEUMATOID ARTHRITIS, UNSPECIFIED (3) Hypertension Code(s): I10 - ESSENTIAL (PRIMARY) HYPERTENSION Qualifiers: Hypertension type: unspecified Qualified Code(s): I10 - Essential (primary ) hypertension (4) HLD (hyperlipidemia) Code(s): E78.5 - HYPERLIPIDEMIA, UNSPECIFIED
[2018-08-13 13:59] VITALS: BP 133/70; PULSE 55; TEMP 98
== END 2018-08-13 15:08 | disposition short-term general hospital (02) ==
LOC: JER 08:37 → JERBED 09:46 → J4W 12:41
PROVIDERS: ADMIT Internal Medicine; ATTEND Internal Medicine
PROC: 3E033GC Introduction of Other Therapeutic Substance into Peripheral Vein, Percutaneous Approach (ICD-10-PCS; principal; 2018-08-10)
DX: R07.9 Chest pain, unspecified (principal); R06.00 Dyspnea, unspecified; I25.10 Atherosclerotic heart disease of native coronary artery without angina pectoris; I10 Essential (primary) hypertension; M06.9 Rheumatoid arthritis, unspecified; Z86.79 Personal history of other diseases of the circulatory system; E78.5 Hyperlipidemia, unspecified; K82.4 Cholesterolosis of gallbladder
CPT/HCPCS: 36415; 71045-TC-FY; 76705-TC; 78452-TC; 80053; 80061; 82550; 82553; 83036; 83721; 83735; 83880; 84100; 84439; 84443; 84484; 85025; 85027; 93005; 93010; 93017; 93306-TC; 93880-TC; 96374; 99283-25; A9502; G0378; J2785

== ENCOUNTER 2019-01-27 17:47 | Inpatient (IN) | payer OTHER ==
[2019-01-27 18:11] VITALS: BMI 26.6
[2019-01-27 19:29] LABS: BASO % 0.3 % (0-2.0); EOS % 1.3 % (0-4.5); HEMATOCRIT 36.2 % (32.4-45.2); LYMPH % 38.7 % (8-40); MCH 30.1 pg (25.7-33.7); MCHC 33.2 g/dl (32.0-36.0); MEAN CELL VOLUME 90.5 fl (80-96); MEAN PLT VOLUME 9.7 fl (7.5-11.1); MONO % 8.2 % (3.8-10.2); NEUT % 51.5 % (42.8-82.8); PLATELET COUNT 165 K/MM3 (134-434); RDW 14.3 % (11.6-15.6); WHITE BLOOD COUNT 5.9 K/mm3 (4.0-10.0)
[2019-01-27 19:40] LABS: INR 0.98 (0.83-1.09); PROTHROMBIN TIME (PATIENT) 11.6 SEC (9.7-13.0)
[2019-01-27 19:53] LABS: ALBUMIN 3.3 g/dl (3.4-5.0); BILIRUBIN,TOTAL 0.6 mg/dL (0.2-1); BLOOD UREA NITROGEN 13.4 mg/dL (7-18); CALCIUM 8.4 mg/dL (8.5-10.1); CREATININE 0.7 mg/dL (0.55-1.3); POTASSIUM 3.8 mmol/L (3.5-5.1); TOT PROT 5.8 g/dl (6.4-8.2)
--- NOTE | 2019-01-27 20:07 | PDOC ---
History of Present Illness - General Chief Complaint: Lethargy Stated Complaint: SENT BY History Source: Patient Exam Limitations: No Limitations - History of Present Illness Initial Comments: 01/27/19 20:03 68-year-old female history of hypertension rheumatoid arthritis CAD status post 2x stents 3 months ago here today complaining of persistent fatigue. Patient was seen by her president ergonomic consulting Dr. rondon and was told to come to the ED for admission for possible pacer placement. Patient states that she initially was attributing her fatigue to her coronary disease however even after stent placement she has persistent fatigue denies any fevers or chills no chest pain no shortness of breath denies any worsening leg edema today when she was seen in the office was found to be extremely bradycardic denies any recent syncope no other current complaints patient states she is on aspirin Plavix and a third medication which she cannot remember the name of Past History - Past Medical History Allergies/Adverse Reactions: Allergies Allergy/AdvReac Type Severity Reaction Status Date / Time No Known Allergies Allergy Verified 01/27/19 18:08 Home Medications: Ambulatory Orders Hydrochlorothiazide [Hctz -] 12.5 mg PO DAILY 08/10/18 Methotrexate [Mexate -] 20 mg PO Q7D 08/10/18 COPD: No HTN: Yes - Immunization History Immunization Up to Date: Yes - Psycho Social/Smoking Cessation Hx Smoking History: Never smoked Have you smoked in the past 12 months: No Hx Alcohol Use: No Drug/Substance Use Hx: No Review of Systems - Review of Systems Constitutional: No: Chills, Diaphoresis, Fever HEENTM: No: Eye Pain Respiratory: No: Cough, Orthopnea, Shortness of Breath Cardiac (ROS): Yes: Irregular Heart Rate. No: Chest Pain, Edema ABD/GI: No: Abdominal Distended, Vomiting : No: Burning, Dysuria All Other Systems: Reviewed and Negative *Physical Exam - Vital Signs Last Vital Signs Temp Pulse Resp BP Pulse Ox 97.6 F 46 L 16 145/59 L 98 01/27/19 18:08 01/27/19 18:08 01/27/19 18:08 01/27/19 18:08 01/27/19 18:08 - Physical Exam 01/27/19 20:05 Awake alert no acute distress lungs are clear bilaterally heart is noted to be bradycardic and somewhat irregular abdomen is soft and nontender extremities are warm and well-perfused there is no noted edema. Patient has 2+ DP PT pulses bilaterally. Is awake alert and oriented x3 moving all 4 extremities Heart Score/ECG Review #1 ECG reviewed & interpreted by me at: 20:06 General ECG Interpretation: Normal Intervals, No acute ischemic changes Compared to previous ECG there are: Other (sinus bradycardia, with pvc, . 41 bpm ) ED Treatment Course - LABORATORY CBC & Chemistry Diagram: 01/27/19 19:05 01/27/19 19:05 - ADDITIONAL ORDERS Additional order review: Laboratory Results 01/27/19 01/27/19 12 19:05 19:05 19:05 PT with INR 11.60 INR 0.98 PTT (Actin FS) Sodium Potassium Chloride Carbon Dioxide Anion Gap BUN Creatinine Est GFR (CKD-EPI)AfAm Est GFR (CKD-EPI)NonAf Random Glucose Calcium Magnesium 2.3 Total Bilirubin AST ALT Alkaline Phosphatase Creatine Kinase Troponin I Total Protein Albumin TSH 3.08 01/27/19 01/27/19 01/27/19 19:05 19:05 19:05 PT with INR INR PTT (Actin FS) 31.3 Sodium 145 Potassium 3.8 Chloride 112 H Carbon Dioxide 26 Anion Gap 7 L BUN 13.4 Creatinine 0.7 Est GFR (CKD-EPI)AfAm 102.46 Est GFR (CKD-EPI)NonAf 88.40 Random Glucose 98 Calcium 8.4 L Magnesium Total Bilirubin 0.6 AST 29 ALT 33 Alkaline Phosphatase 79 Creatine Kinase 145 Troponin I < 0.02 Total Protein 5.8 L Albumin 3.3 L TSH 01/27/19 19:05 RBC 4.00 MCV 90.5 MCHC 33.2 RDW 14.3 MPV 9.7 Neutrophils % 51.5 Lymphocytes % 38.7 D Monocytes % 8.2 Eosinophils % 1.3 D Basophils % 0.3 - RADIOLOGY Radiology Studies Ordered: Category Date Time Status CHEST X-RAY PORTABLE* [RAD] Stat Radiology 01/27/19 18:42 Taken Medical Decision Making - Medical Decision Making 01/27/19 20:05 68-year-old female history of CAD status post stents hypertension rheumatoid arthritis here with bradycardia. Patient is awake alert and oriented and is normotensive at this time patient will be admitted to telemetry Case discussed with Dr. Day with some states he will try to coordinate a pacer placement for the patient differential includes hypothyroid medication side effects and electrolyte abnormalities CBC CMP EKG chest x-ray and TSH were sent and are pending will work with the hospitalist team for admission to telemetry 01/27/19 20:08 pcp Maribell Rebolledo. Discharge - Discharge Information Problems reviewed: Yes Clinical Impression/Diagnosis: Bradycardia - Admission Yes - Follow up/Referral Referrals: Maribell Morgan MD [Primary Care Provider] - - Patient Discharge Instructions - Post Discharge Activity
--- NOTE | 2019-01-27 21:34 | PN ---
Teaching Attending Note Name of Resident: Jhon Sawyer ATTENDING PHYSICIAN STATEMENT I saw and evaluated the patient. I reviewed the resident's note and discussed the case with the resident. I agree with the resident's findings and plan as documented. SUBJECTIVE: Patient is a 68 year old woman with PMH of Hypertension, Rheumatoid arthritis and CAD (status post 2x stents) presenting with complaint of persistent fatigue. Patient was seen by her client relations specialist Dr. Delgado and was told to come to the ER for admission for possible pacemaker placement. Patient states that she initially was attributing her fatigue to her coronary disease however even after stent placement she has persistent fatigue. Denies any fevers, chills , chest pain, shortness of breath, or worsening leg edema. Today when she was seen in the office was found to be extremely bradycardic. Denies any recent syncope. She is on Aspirin, Plavix and a third medication which she cannot remember. Denies tobacco, alcohol or illicit drug use. No recent travel or sick contacts. FH of CAD and DM. OBJECTIVE: Alert Vital Signs Period Temp Pulse Resp BP Sys/Gonzalez Pulse Ox Last 24 Hr 97.6 F 46 16 145/59 98 HEENT: No Jaundice, eye redness or discharge, PERRLA, EOMI. Normocephalic, atraumatic. External ears are normal and hearing is grossly intact. No nasal discharge. Neck: Supple, nontender. No palpable adenopathy or thyromegaly. No JVD Chest: Good effort. Clear to auscultation and percussion. Heart: Bradycardia. No S3, rub or murmur Abdomen: Not distended, soft, nontender and no HSM. No rebound or guarding. Normal bowel sounds. Ext: Peripheral pulses intact. No leg edema. Skin: Warm and dry. No petechiae, rash or ecchymosis. Neuro: Alert. Oriented x3. CN 2-12 grossly intact. Sensation grossly intact in all four extremities and DTR are symmetric. Psych: Appropriate mood and affect. Good insight. Home Medications Medication Instructions Recorded Hydrochlorothiazide [Hctz -] 12.5 mg PO DAILY 08/10/18 Methotrexate [Mexate -] 20 mg PO Q7D 08/10/18 Abnormal Lab Results 01/27/19 19:05 Chloride 112 H Anion Gap 7 L Calcium 8.4 L Total Protein 5.8 L Albumin 3.3 L ASSESSMENT AND PLAN: 1. Symptomatic bradycardia - No obvious cause. EKG shows bradycardia with rate of 41 and PACs. Temporary pacemaker in place. Cardiology consulted. Being kept NPO as per client relations specialist's request - for possible transfer to [facility] for pacemaker placement. CXR shows cardiomegaly, calcified aortic knob, and increased interstitial markings. Urinalysis pending. Will continue comprehensive care for all of patients comorbid conditions. 2. Hypoalbuminemia - Possibly due to combined effects of malnutrition and inflammation associated with comorbid chronic conditions. Will ensure adequate dietary protein intake and also consult [facility]. Urinalysis pending. 3. Hypertension - Restart suitable outpatient antihypertensive drugs when clinically appropriate. Revise regimen to ensure [id number] excellent BP control and litigation counsel patient on the injurious effects of uncontrolled hypertension. Nonpharmacologic measures to control hypertension like weight loss , salt restriction and exercise discussed. Importance of adherence to treatment regimen and attainment of normotension emphasized. 4. DVT prophylaxis - Lovenox 40 mg SQ q 24 hours. 5. Advance directives - Full code.
--- NOTE | 2019-01-27 21:41 | HP ---
CHIEF COMPLAINT: Bradycardia PCP: Dr. Morgan Silveira HISTORY OF PRESENT ILLNESS: This is a 68 y/o F with a PMHx of hypertension, RA (on MTX 1 pill q7days), CAD (s/p 2 stents 08/11), here today c/o persistent fatigue and SOB since July. The patient states that when she walks less than 20 feet or lies flat she feels short of breath and describes having heaviness in her chest since prior to July. She was told to come to [facility] ED by her transplant nurse practitioner (Dr. Delgado) today while in his office, due to her having profound bradycardia requiring in patient workup. Pt was told she will be transferred to [facility] for pacemaker placement, although the date of the procedure is unknown. She is currently on ASA, Plavix given her stent hx, per ED chart review, but pt unsure. Pt states her daughter knows all her medications and will be present tomorrow. She denies cp, dizziness, palpitations , fever/chills, worsening leg swelling, diaphoresis, N/V, changes in bowel and bladder habits. She states she is currently on aspirin and Plavix but is unsure if she is on any other anti coagulant medications. Medical history: HTN, RA, CAD Family hx: Father hx- DM from a MT at 69, Mother- stroke at age 82 , Brother- hx of heart problem, and from lung cancer at 59 Social history: denies ETOH, tobacco use and illicit drug use , lives at home alone Surgeries: 2x stent 3 months ago ER course was notable for: (1)EKG significant for sinus bradycardia (41bpm), normal Qtc (2)transcutaneous pacer pads applied but not currently pacing (3)Labs unremarkable, CXR- cardiomegaly, calcification aortic knobm increased interstitial markings. Allergies No Known Allergies Allergy (Verified 01/27/19 18:08) HOME MEDICATIONS: Home Medications Medication Instructions Recorded Hydrochlorothiazide [Hctz -] 12.5 mg PO DAILY 08/10/18 Methotrexate [Mexate -] 20 mg PO Q7D 08/10/18 REVIEW OF SYSTEMS Negative except in HPI PHYSICAL EXAMINATION Vital Signs - 24 hr 01/27/19 18:08 Temperature 97.6 F Pulse Rate 46 L Respiratory 16 Rate Blood Pressure 145/59 L O2 Sat by Pulse 98 Oximetry (%) GENERAL: Awake, alert, and fully oriented, in no acute distress. LUNGS: Breath sounds equal, clear to auscultation bilaterally. No wheezes, and no crackles. No accessory muscle use. HEART: Bradycardic, regular rhythm, normal S1 and S2 without murmur, rub or gallop. ABDOMEN: Soft, nontender, not distended, normoactive bowel sounds, no guarding, no rebound, no masses. LOWER EXTREMITIES: 2+ pulses, warm, well-perfused. No calf tenderness. 1+ peripheral edema. NEUROLOGICAL: Cranial nerves II-XII intact. Normal speech. PSYCHIATRIC: Cooperative. Good eye contact. Appropriate mood and affect. SKIN: Warm, dry, no rashes or lesions noted. Laboratory Results - last 24 hr 01/27/19 01/27/19 01/27/19 19:05 19: 19:05 WBC RBC Hgb Hct MCV MCH MCHC RDW Plt Count MPV Absolute Neuts (auto) Neutrophils % Lymphocytes % Monocytes % Eosinophils % Basophils % Nucleated RBC % PT with INR INR PTT (Actin FS) 31.3 Sodium Potassium Chloride Carbon Dioxide Anion Gap BUN Creatinine Est GFR (CKD-EPI)AfAm Est GFR (CKD-EPI)NonAf Random Glucose Calcium Magnesium Total Bilirubin AST ALT Alkaline Phosphatase Creatine Kinase 145 Troponin I < 0.02 Total Protein Albumin TSH Blood Type A POSITIVE Antibody Screen Negative 01/27/19 01/27/19 01/27/19 19:05 19:05 19:05 WBC 5.9 RBC 4.00 Hgb 12.0 Hct 36.2 MCV 90.5 MCH 30.1 MCHC 33.2 RDW 14.3 Plt Count 165 MPV 9.7 Absolute Neuts (auto) 3.0 Neutrophils % 51.5 Lymphocytes % 38.7 D Monocytes % 8.2 Eosinophils % 1.3 D Basophils % 0.3 Nucleated RBC % 0 PT with INR INR PTT (Actin FS) Sodium 145 Potassium 3.8 Chloride 112 H Carbon Dioxide 26 Anion Gap 7 L BUN 13.4 Creatinine 0.7 Est GFR (CKD-EPI)AfAm 102.46 Est GFR (CKD-EPI)NonAf 88.40 Random Glucose 98 Calcium 8.4 L Magnesium 2.3 Total Bilirubin 0.6 AST 29 ALT 33 Alkaline Phosphatase 79 Creatine Kinase Troponin I Total Protein 5.8 L Albumin 3.3 L TSH Blood Type Antibody Screen 01/27/19 01/27/19 19:05 19:05 WBC RBC Hgb Hct MCV MCH MCHC RDW Plt Count MPV Absolute Neuts (auto) Neutrophils % Lymphocytes % Monocytes % Eosinophils % Basophils % Nucleated RBC % PT with INR 11.60 INR 0.98 PTT (Actin FS) Sodium Potassium Chloride Carbon Dioxide Anion Gap BUN Creatinine Est GFR (CKD-EPI)AfAm Est GFR (CKD-EPI)NonAf Random Glucose Calcium Magnesium Total Bilirubin AST ALT Alkaline Phosphatase Creatine Kinase Troponin I Total Protein Albumin TSH 3.08 Blood Type Antibody Screen ASSESSMENT/PLAN: This is a 68 y/o F with a PMHx of hypertension, RA (on MTX 1 pill q7days), CAD ( s/p 2 stents 08/11), here today c/o persistent fatigue and SOB since July. The patient states that when she walks less than 20 feet or lies flat she feels short of breath and describes having heaviness in her chest since prior to July. She was told to come to [facility] ED by her transplant nurse practitioner (Dr. Delgado) today while in his office, due to her having profound bradycardia requiring in patient workup. #Sinus bradycardia- likely 2/2 sick sinus syndrome - pt hemodynamically stable so will not give atropine or pace pt at this time - TSH normal - monitor on tele - Dr. Delgado consulted and plans on transferring pt to [facility] for pacemaker placement, pt aware of this - confirm AC meds etc with daughter in AM/cardio and ask cardio about NPO status given we are unsure how long until transfer - hold BB's - continue ASA/Plavix - Lyme titer given bradycardia could be masking a heart block but doubt given lack of recent travel in [place] or around ticks but monica seems chronic - doubt vasovagal given lack of prodromal symptoms or syncope, doubt ischemic cardiomyopathy given recent stents placed, ? long standing HTN induced however. - Pt would benefit from EP study to be certain of cause. #RA - MTX given once a week - signs of worsening RA on exam - will follow with Dr. Whiteside as o/p #HTN - Hold antihypertensive agents especially BB's DVT PPx: Lovenox 40 Sq DAILY Visit type - Emergency Visit Emergency Visit: Yes ED Registration Date: 01/27/19 Care time: The patient presented to the Emergency Department on the above date and was hospitalized for further evaluation of their emergent condition. - New Patient This patient is new to me today: Yes Date on this admission: 01/30/19 - Critical Care Critical Care patient: No ATTENDING PHYSICIAN STATEMENT I saw and evaluated the patient. I reviewed the resident's note and discussed the case with the resident. I agree with the resident's findings and plan as documented. SUBJECTIVE: OBJECTIVE: ASSESSMENT AND PLAN:
[2019-01-28 07:26] LABS: BLOOD UREA NITROGEN 9.7 mg/dL (7-18); CALCIUM 8.6 mg/dL (8.5-10.1); CREATININE 0.6 mg/dL (0.55-1.3); MAGNESIUM 2.4 mg/dL (1.8-2.4); POTASSIUM 3.5 mmol/L (3.5-5.1)
[2019-01-28 07:33] LABS: HEMATOCRIT 37.8 % (32.4-45.2); HEMOGLOBIN 12.7 GM/dL (10.7-15.3); MCH 30.3 pg (25.7-33.7); MCHC 33.7 g/dl (32.0-36.0); MEAN CELL VOLUME 90.1 fl (80-96); MEAN PLT VOLUME 9.6 fl (7.5-11.1); PLATELET COUNT 154 K/MM3 (134-434); RBC 4.19 M/mm3 (3.60-5.2); RDW 14.5 % (11.6-15.6); WHITE BLOOD COUNT 4.3 K/mm3 (4.0-10.0)
--- NOTE | 2019-01-28 08:50 | PN ---
Progress Note (short form) - Note Progress Note: Cardiac Cath [facility] 08/13/18 Left Main patent LAD ostial 60%, with MLA by IVUS 4.2-4.5 mm2 (fibrocalcific plaque with ~ 60% plaque burden), proximal 80%, mid 70%, distal 40% D1 90% small to medium size vessel LCx luminal irregularities RCA proximal 30%, mid 30%, distal 40% PCI of CALVIN p and mLAD Cardiac Cath [facility] 2018 70-80% ostial LAD IFr and FFR revealed non hemodynamically significant ostial LAD stenosis Ongoing medical problems Hypertension ASHD Patient complains of episodes of light headedness associated with episodes of hypertension and bradycardia; as per the patient's measurements her blood pressure is 80/40 mmHg and a pulse of 40 BPM. 12/02/2018
[2019-01-28] MEDS ORDERED: SODIUM CHLORIDE 1,000 ML IV SCH (09:00)
[2019-01-28] MEDS ORDERED: CLOPIDOGREL BISULFATE 75 MG TABLET (FP) PO SCH (10:00)
[2019-01-28] MEDS ORDERED: ASPIRIN COATED 81 MG TABLET.EC PO SCH (10:00)
[2019-01-28] MEDS ORDERED: ENOXAPARIN NA (PORCINE) 40 MG/0.4 ML DISP.SYRIN SQ SCH (10:00)
--- NOTE | 2019-01-28 11:44 | EKG ---
Test Reason : Blood Pressure : / mmHG Vent. Rate : 041 BPM Atrial Rate : 041 BPM P-R Int : 190 ms QRS Dur : 080 ms QT Int : 488 ms P-R-T Axes : 078 008 033 degrees QTc Int : 402 ms MARKED SINUS BRADYCARDIA WITH PREMATURE ATRIAL COMPLEXES IN A PATTERN OF BIGEMINY ABNORMAL ECG WHEN COMPARED WITH ECG OF 10-AUG-2018 08:32, PREMATURE ATRIAL COMPLEXES ARE NOW PRESENT VENT. RATE HAS DECREASED BY 37 BPM QT HAS SHORTENED Confirmed by YUSEF PARSON MD ([id number]) on 01/28/2019 11:43:22 AM Referred By: Confirmed By:YUSEF PARSON MD
[2019-01-28 12:54] VITALS: PULSE 70; TEMP 98.1
[2019-01-28 14:08] VITALS: BP 140/93
--- NOTE | 2019-01-28 18:16 | DS ---
Physical Exam: SUBJECTIVE: Patient seen and examined in the morning. No acute events overnight. Patient has complaints of chest pressure but not pain at rest. No shortness of breath, no abdominal pain, no fevers, no headache. OBJECTIVE: Vital Signs Period Temp Pulse Resp BP Sys/Gonzalez Pulse Ox Last 24 Hr 98.1 F-98.3 F 69-70 16-18 140-153/80-93 97-98 PHYSICAL EXAM GENERAL: The patient is awake, alert, and fully oriented, in no acute distress. HEAD: Normal with no signs of trauma. EYES: PERRL, extraocular movements intact, sclera anicteric, conjunctiva clear. ENT: Ears normal, nares patent, oropharynx clear without exudates, moist mucous membranes. NECK: Trachea midline, full range of motion, supple. LUNGS: Breath sounds equal, clear to auscultation bilaterally, no wheezes, no crackles, no accessory muscle use. HEART: Regular rate and rhythm, S1, S2 without murmur, rub or gallop. ABDOMEN: Soft, nontender, nondistended, normoactive bowel sounds, no guarding, no rebound, no hepatosplenomegaly, no masses. EXTREMITIES: 2+ pulses, warm, well-perfused, no edema. 4/5 strength in b/l extremities. NEUROLOGICAL: Cranial nerves II through XII grossly intact. Normal speech, gait not observed. PSYCH: Normal mood, normal affect. SKIN: Warm, dry, normal turgor, no rashes or lesions noted. LABS Laboratory Results - last 24 hr 01/27/19 01/27/19 01/27/19 19:05 19:05 19:05 WBC RBC Hgb Hct MCV MCH MCHC RDW Plt Count MPV Absolute Neuts (auto) Neutrophils % Lymphocytes % Monocytes % Eosinophils % Basophils % Nucleated RBC % PT with INR INR PTT (Actin FS) 31.3 Sodium Potassium Chloride Carbon Dioxide Anion Gap BUN Creatinine Est GFR (CKD-EPI)AfAm Est GFR (CKD-EPI)NonAf Random Glucose Calcium Phosphorus Magnesium Total Bilirubin AST ALT Alkaline Phosphatase Creatine Kinase 145 Troponin I < 0.02 Total Protein Albumin Triglycerides Cholesterol Total LDL Cholesterol HDL Cholesterol TSH Blood Type A POSITIVE Antibody Screen Negative 01/27/19 01/27/19 01/27/19 19:05 19:05 19:05 WBC 5.9 RBC 4.00 Hgb 12.0 Hct 36.2 MCV 90.5 MCH 30.1 MCHC 33.2 RDW 14.3 Plt Count 165 MPV 9.7 Absolute Neuts (auto) 3.0 Neutrophils % 51.5 Lymphocytes % 38.7 D Monocytes % 8.2 Eosinophils % 1.3 D Basophils % 0.3 Nucleated RBC % 0 PT with INR INR PTT (Actin FS) Sodium 145 Potassium 3.8 Chloride 112 H Carbon Dioxide 26 Anion Gap 7 L BUN 13.4 Creatinine 0.7 Est GFR (CKD-EPI)AfAm 102.46 Est GFR (CKD-EPI)NonAf 88.40 Random Glucose 98 Calcium 8.4 L Phosphorus Magnesium 2.3 Total Bilirubin 0.6 AST 29 ALT 33 Alkaline Phosphatase 79 Creatine Kinase Troponin I Total Protein 5.8 L Albumin 3.3 L Triglycerides Cholesterol Total LDL Cholesterol HDL Cholesterol TSH Blood Type Antibody Screen 01/27/19 01/27/19 01/28/19 19:05 19:05 06:42 WBC 4.3 RBC 4.19 Hgb 12.7 Hct 37.8 MCV 90.1 MCH 30.3 MCHC 33.7 RDW 14.5 Plt Count 154 MPV 9.6 Absolute Neuts (auto) Neutrophils % Lymphocytes % Monocytes % Eosinophils % Basophils % Nucleated RBC % PT with INR 11.60 INR 0.98 PTT (Actin FS) Sodium Potassium Chloride Carbon Dioxide Anion Gap BUN Creatinine Est GFR (CKD-EPI)AfAm Est GFR (CKD-EPI)NonAf Random Glucose Calcium Phosphorus Magnesium Total Bilirubin AST ALT Alkaline Phosphatase Creatine Kinase Troponin I Total Protein Albumin Triglycerides Cholesterol Total LDL Cholesterol HDL Cholesterol TSH 3.08 Blood Type Antibody Screen 01/28/19 01/28/19 06:42 08:00 WBC RBC Hgb Hct MCV MCH MCHC RDW Plt Count MPV Absolute Neuts (auto) Neutrophils % Lymphocytes % Monocytes % Eosinophils % Basophils % Nucleated RBC % PT with INR INR PTT (Actin FS) Sodium 146 H Potassium 3.5 Chloride 112 H Carbon Dioxide 27 Anion Gap 7 L BUN 9.7 Creatinine 0.6 Est GFR (CKD-EPI)AfAm 107.79 Est GFR (CKD-EPI)NonAf 93.00 Random Glucose 99 Calcium 8.6 Phosphorus 4.0 Magnesium 2.4 Total Bilirubin AST ALT Alkaline Phosphatase Creatine Kinase Troponin I Total Protein Albumin Triglycerides 109 Cholesterol 141 Total LDL Cholesterol 66 HDL Cholesterol 57 TSH Blood Type A POSITIVE Antibody Screen HOSPITAL COURSE: Date of Admission:01/27/19 Date of Discharge: 01/28/19 68 F with PMH of HTN, RA, CAD s/p 2 stents was admitted for symptomatic bradycardia. Patient is transferred to [facility] for pacemaker placement. Minutes to complete discharge: 10 Discharge Summary Problems reviewed: Yes Reason For Visit: BRADYCARDIA - Instructions Diet, Activity, Other Instructions: 68 F with PMH of HTN, RA, CAD s/p 2 stents was admitted for symptomatic bradycardia. Patient is transferred to [facility] for pacemaker placement. Referrals: Maribell Morgan MD [Primary Care Provider] - Disposition: TRANSFER ACUTE CARE/OTHER HOSP - Home Medications Comprehensive Discharge Medication List: Ambulatory Orders Hydrochlorothiazide [Hctz -] 12.5 mg PO DAILY 08/10/18 Methotrexate [Mexate -] 20 mg PO Q7D 08/10/18 This patient is new to me today: Yes Date on this admission: 01/28/19 Emergency Visit: Yes ED Registration Date: 01/27/19 Care time: The patient presented to the Emergency Department on the above date and was hospitalized for further evaluation of their emergent condition. Critical Care patient: No - Discharge Referral Referred to [facility] No ATTENDING PHYSICIAN STATEMENT I saw and evaluated the patient. I reviewed the resident's note and discussed the case with the resident. I agree with the resident's findings and plan as documented. SUBJECTIVE: OBJECTIVE: ASSESSMENT AND PLAN:
--- NOTE | 2019-01-28 19:30 | PN ---
Teaching Attending Note Name of Resident: Viki Hutchins ATTENDING PHYSICIAN STATEMENT I saw and evaluated the patient. I reviewed the resident's note and discussed the case with the resident. I agree with the resident's findings and plan as documented. SUBJECTIVE: OBJECTIVE: Afebrile, Bradycardia Last Vital Signs Temp Pulse Resp BP Pulse Ox 98.1 F 70 18 140/90 98 01/28/19 12:52 01/28/19 12:52 01/28/19 12:52 01/28/19 12:52 01/28/19 12:52 HEENT - Atraumatic, Normocephalic. Heart - S, S2, RRR Lungs - clear to auscultation Abdomen - soft, non-tender. Bowel Sounds normal Extremities - no calf tenderness. Neuro - AAO x 3. Tone/Power normal all 4 extremities. Laboratory Results - last 24 hr 01/27/19 01/27/19 01/27/19 19:05 19:05 19:05 WBC RBC Hgb Hct MCV MCH MCHC RDW Plt Count MPV Absolute Neuts (auto) Neutrophils % Lymphocytes % Monocytes % Eosinophils % Basophils % Nucleated RBC % PT with INR INR PTT (Actin FS) 31.3 Sodium Potassium Chloride Carbon Dioxide Anion Gap BUN Creatinine Est GFR (CKD-EPI)AfAm Est GFR (CKD-EPI)NonAf Random Glucose Calcium Phosphorus Magnesium Total Bilirubin AST ALT Alkaline Phosphatase Creatine Kinase 145 Troponin I < 0.02 Total Protein Albumin Triglycerides Cholesterol Total LDL Cholesterol HDL Cholesterol TSH Blood Type A POSITIVE Antibody Screen Negative 01/27/19 01/27/19 01/27/19 19:05 19:05 19:05 WBC 5.9 RBC 4.00 Hgb 12.0 Hct 36.2 MCV 90.5 MCH 30.1 MCHC 33.2 RDW 14.3 Plt Count 165 MPV 9.7 Absolute Neuts (auto) 3.0 Neutrophils % 51.5 Lymphocytes % 38.7 D Monocytes % 8.2 Eosinophils % 1.3 D Basophils % 0.3 Nucleated RBC % 0 PT with INR INR PTT (Actin FS) Sodium 145 Potassium 3.8 Chloride 112 H Carbon Dioxide 26 Anion Gap 7 L BUN 13.4 Creatinine 0.7 Est GFR (CKD-EPI)AfAm 102.46 Est GFR (CKD-EPI)NonAf 88.40 Random Glucose 98 Calcium 8.4 L Phosphorus Magnesium 2.3 Total Bilirubin 0.6 AST 29 ALT 33 Alkaline Phosphatase 79 Creatine Kinase Troponin I Total Protein 5.8 L Albumin 3.3 L Triglycerides Cholesterol Total LDL Cholesterol HDL Cholesterol TSH Blood Type Antibody Screen 01/27/19 01/27/19 01/28/19 19:05 19:05 06:42 WBC 4.3 RBC 4.19 Hgb 12.7 Hct 37.8 MCV 90.1 MCH 30.3 MCHC 33.7 RDW 14.5 Plt Count 154 MPV 9.6 Absolute Neuts (auto) Neutrophils % Lymphocytes % Monocytes % Eosinophils % Basophils % Nucleated RBC % PT with INR 11.60 INR 0.98 PTT (Actin FS) Sodium Potassium Chloride Carbon Dioxide Anion Gap BUN Creatinine Est GFR (CKD-EPI)AfAm Est GFR (CKD-EPI)NonAf Random Glucose Calcium Phosphorus Magnesium Total Bilirubin AST ALT Alkaline Phosphatase Creatine Kinase Troponin I Total Protein Albumin Triglycerides Cholesterol Total LDL Cholesterol HDL Cholesterol TSH 3.08 Blood Type Antibody Screen 01/28/19 01/28/19 06:42 08:00 WBC RBC Hgb Hct MCV MCH MCHC RDW Plt Count MPV Absolute Neuts (auto) Neutrophils % Lymphocytes % Monocytes % Eosinophils % Basophils % Nucleated RBC % PT with INR INR PTT (Actin FS) Sodium 146 H Potassium 3.5 Chloride 112 H Carbon Dioxide 27 Anion Gap 7 L BUN 9.7 Creatinine 0.6 Est GFR (CKD-EPI)AfAm 107.79 Est GFR (CKD-EPI)NonAf 93.00 Random Glucose 99 Calcium 8.6 Phosphorus 4.0 Magnesium 2.4 Total Bilirubin AST ALT Alkaline Phosphatase Creatine Kinase Troponin I Total Protein Albumin Triglycerides 109 Cholesterol 141 Total LDL Cholesterol 66 HDL Cholesterol 57 TSH Blood Type A POSITIVE Antibody Screen Home Medications Medication Instructions Recorded Hydrochlorothiazide [Hctz -] 12.5 mg PO DAILY 08/10/18 Methotrexate [Mexate -] 20 mg PO Q7D 08/10/18 ASSESSMENT AND PLAN:
== END 2019-01-28 14:00 | disposition short-term general hospital (02) | DRG 310 ==
LOC: JER 17:47 → JERBED 20:09
PROVIDERS: ADMIT Internal Medicine
DX: I49.5 Sick sinus syndrome (principal); I10 Essential (primary) hypertension; I25.10 Atherosclerotic heart disease of native coronary artery without angina pectoris; M06.9 Rheumatoid arthritis, unspecified; Z98.61 Coronary angioplasty status; E88.09 Other disorders of plasma-protein metabolism, not elsewhere classified
CPT/HCPCS: 36415; 71045-TC-FY; 80048; 80053; 80061; 82550; 83721; 83735; 84100; 84443; 84484; 85025; 85027; 85610; 85730; 86850; 86900; 86901; 93005; 93010; 99285-25

== ENCOUNTER 2022-03-27 04:20 | Day surgery (SDC) | payer OTHER ==
[2022-03-26 08:10] VITALS: BMI 27.3
[2022-03-27] MEDS ORDERED: LIDOCAINE HCL 2% (20ML MULTI-DOSE VIAL) ONE (15:20)
[2022-03-27 15:53] VITALS: TEMP 97.5
[2022-03-27 16:23] VITALS: BP 110/68; PULSE 67; RESP 16
== END 2022-03-27 16:20 | disposition home or self-care (01) ==
LOC: JASU-ENDO 04:20
PROVIDERS: ATTEND Internal Medicine Gastroenterology
PROC: 0DB78ZX Excision of Stomach, Pylorus, Via Natural or Artificial Opening Endoscopic, Diagnostic (ICD-10-PCS; 2022-03-27)
PROC: 0DB68ZX Excision of Stomach, Via Natural or Artificial Opening Endoscopic, Diagnostic (ICD-10-PCS; principal; 2022-03-27 13:00)
DX: K29.50 Unspecified chronic gastritis without bleeding (principal); B96.81 Helicobacter pylori [H. pylori] as the cause of diseases classified elsewhere; K31.7 Polyp of stomach and duodenum; I10 Essential (primary) hypertension; E11.9 Type 2 diabetes mellitus without complications; Z79.84 Long term (current) use of oral hypoglycemic drugs
CPT/HCPCS: 82962; 88305-TC; 88342-TC